=== PATIENT | male | born 1965 | race Caucasian/White ===

== ENCOUNTER → 2025-07-30 08:00 | Outpatient (REF) | payer OTHER, SELFPAY ==
--- NOTE | 2025-07-30 09:05 | CARDSERVLU ---
Echocardiogram with Lumason completed after protocol screening completed. Allergies verified.
Patent IV site: _Rt hand____
IV site flushed with 0.9% NaCl pre and post administration.
Diluted bolus method utilized to enhance visualization of ventricular soto.
Total volume given: _5.0___ mL
Patient tolerated all procedures well without complications.
#22 malena placed Rt hand. Lumason given. INT d/c'd. pressure held. No bleeding noted.
== END ==
LOC: RCS 08:00
PROVIDERS: ATTENDING PHYSICIAN Internal Medicine; FAMILY PHYSICIAN General Practice
DX: I25.10 Atherosclerotic heart disease of native coronary artery without angina pectoris (principal); I25.5 Ischemic cardiomyopathy; I50.22 Chronic systolic (congestive) heart failure; I45.4 Nonspecific intraventricular block
CPT/HCPCS: 93306; Q9950